=== PATIENT | male | born 1975 | race Caucasian/White ===

== ENCOUNTER 2017-07-11 18:10 | Emergency (ER) | payer BC ==
[2017-07-11] MEDS ORDERED: Clindamycin CAP* 150 MG PO ONE ×2 (18:45→19:01)
[2017-07-11 18:50] VITALS: BP 139/81
--- NOTE | 2017-07-11 18:54 | UC ---
UC Dental HPI - HPI Summary HPI Summary: patient has increased upper jaw pain and right maxillary sinus pain, started 2 days ago. - History of Current Complaint Chief Complaint: UCDentalProblem Stated Complaint: TOOTH PAIN Time Seen by Provider: 07/11/17 18:41 Hx Obtained From: Patient Onset/Duration: Sudden Onset, Lasting Days Severity: Moderate Related History: Previous Dental Care on Same Tooth, Swelling - Allergies/Home Medications Allergies/Adverse Reactions: Allergies Allergy/AdvReac Type Severity Reaction Status Date / Time Penicillins Allergy Mild Rash Verified 07/11/17 18:36 PMH/Surg Hx/FS Hx/Imm Hx Previously Healthy: Yes - Surgical History Surgical History: Yes Surgery Procedure, Year, and Place: FACIAL SURGERY - Family History Known Family History: Positive: Hypertension - Social History Alcohol Use: Weekly Alcohol Amount: once a week Substance Use Type: Marijuana Substance Use Comment - Amount & Last Used: once daily Smoking Status (MU): Heavy Every Day Tobacco Smoker Type: Cigarettes Amount Used/How Often: 1 ppd Review of Systems Constitutional: Negative Skin: Negative Eyes: Negative ENT: Dental Pain Respiratory: Negative Cardiovascular: Negative Gastrointestinal: Negative Genitourinary: Negative Motor: Negative Neurovascular: Negative Musculoskeletal: Negative Neurological: Headache Psychological: Negative Is Patient Immunocompromised?: No All Other Systems Reviewed And Are Negative: Yes Physical Exam Triage Information Reviewed: Yes Appearance: Well-Appearing, Well-Nourished, Pain Distress Vital Signs: Initial Vital Signs Temp 97.1 F 07/11/17 18:32 Pulse 74 07/11/17 18:32 Resp 15 07/11/17 18:32 BP 139/81 07/11/17 18:32 Pulse Ox 100 07/11/17 18:32 Vital Signs Reviewed: Yes Eye Exam: Normal ENT: Positive: Hearing grossly normal, Pharynx normal Dental: Positive: Percussion Tenderness @ - over right max illary sinus, Gross Decay/Caries @, Cellulitis @ Neck exam: Normal Respiratory Exam: Normal Cardiovascular Exam: Normal Abdominal Exam: Normal Bowel Sounds: Positive: Present Musculoskeletal Exam: Normal Neurological Exam: Normal Psychological Exam: Normal Skin Exam: Normal Dental Complaint Course/Dx - Course Course Of Treatment: hx obtained, exam performed ,meds reviewed, treated for dental infection - Differential Dx/Diagnosis Differential Diagnosis/Dx: Dental Abscess, Dental Caries Provider Diagnoses: dental abcess of right upper jaw. maxillary sinus pain Discharge - Discharge Plan Condition: Stable Disposition: HOME Prescriptions: Clindamycin Cap(NF) [Clindamycin Cap 300 mg Cap(NF)] 300 mg PO TID #20 cap Patient Education Materials: Dental Abscess (ED) Referrals: Niles Goetz MD [Primary Care Provider] - Additional Instructions: 1. take the medication as prescribed 2. Gargle withwarm salt water, 3. Warm compresses to the area 4. follow up with the dentist for further evaluation.
== END 2017-07-11 19:09 | disposition home or self-care (01) ==
LOC: UCCORT 18:10
DX: K04.7 Periapical abscess without sinus (principal); J34.89 Other specified disorders of nose and nasal sinuses; Z88.0 Allergy status to penicillin; F12.90 Cannabis use, unspecified, uncomplicated; F17.210 Nicotine dependence, cigarettes, uncomplicated
CPT/HCPCS: 99212; A9270-GY; G0463

== ENCOUNTER 2017-12-07 17:19 | Emergency (ER) | payer BC ==
[2017-12-07 18:35] VITALS: BP 139/83
--- NOTE | 2017-12-07 18:52 | UC ---
FLU HPI - HPI Summary HPI Summary: Cough, congestion and fever since last night. States his was diagnosed with flu 3 days ago. States his 14 yo daughter had flu earlier this year. Pt is a engineer design and construction, working inside still. Hx hypothryroid, on levothryroxine. - History of Current Complaint Chief Complaint: UCGeneralIllness Stated Complaint: FLU SYMPTOMS Time Seen by Provider: 12/07/17 18:39 Hx Obtained From: Patient Onset/Duration: Sudden Onset, Lasting Days - since last pm, Still Present Severity Currently: Moderate Severity Initially: Moderate Pain Intensity: 0 Pain Scale Used: 0-10 Numeric Associated Signs & Symptoms: Positive: Fever, Myalgia, Cough, Sore Throat, Nasal Congestion, Headache. Negative: Vomiting Related Hx: Possible Flu/Infectious Exposure - , Smoking - Allergy/Home Medications Allergies/Adverse Reactions: Allergies Allergy/AdvReac Type Severity Reaction Status Date / Time Penicillins Allergy Intermediate Rash Verified 12/07/17 18:35 PMH/Surg Hx/FS Hx/Imm Hx Previously Healthy: No Endocrine History: Hypothyroidism - on levothryroxine - Surgical History Surgical History: Yes Surgery Procedure, Year, and Place: FACIAL SURGERY - Family History Known Family History: Positive: Hypertension, Other - mother with brain tumor, with it - Social History Occupation: Employed Full-time Lives: With Family Alcohol Use: Weekly Alcohol Amount: once a week Substance Use Type: Marijuana Substance Use Comment - Amount & Last Used: once daily Smoking Status (MU): Heavy Every Day Tobacco Smoker Type: Cigarettes Amount Used/How Often: 1 ppd Review of Systems Constitutional: Fever ENT: Sore Throat, Nasal Discharge, Sinus Congestion, Sinus Pain/Tenderness Respiratory: Cough Cardiovascular: Negative Gastrointestinal: Negative Motor: Negative Neurovascular: Negative Musculoskeletal: Myalgia Neurological: Headache Psychological: Negative Is Patient Immunocompromised?: No All Other Systems Reviewed And Are Negative: Yes Physical Exam Triage Information Reviewed: Yes Appearance: No Pain Distress, Well-Nourished, Ill-Appearing - mod Vital Signs: Initial Vital Signs Temp 98.1 F 12/07/17 18:32 Pulse 74 12/07/17 18:32 Resp 18 12/07/17 18:32 BP 139/83 12/07/17 18:32 Pulse Ox 100 12/07/17 18:32 Vital Signs Reviewed: Yes Eyes: Positive: Conjunctiva Clear ENT: Positive: Hearing grossly normal, Pharyngeal erythema, Nasal congestion, TMs normal, Uvula midline. Negative: Tonsillar swelling, Tonsillar exudate, Muffled voice, Hoarse voice Neck: Positive: Supple, Nontender, No Lymphadenopathy Respiratory: Positive: Chest non-tender, Lungs clear, Normal breath sounds, No respiratory distress, No accessory muscle use Cardiovascular: Positive: RRR, No Murmur, Pulses Normal, Brisk Capillary Refill Abdomen Description: Positive: Nontender, Soft. Negative: Distended, Guarding Musculoskeletal: Positive: Strength Intact, ROM Intact Neurological Exam: Normal Neurological: Positive: Alert, Muscle Tone Normal Psychological Exam: Normal Skin Exam: Normal Flu Course/Dx - Course Course Of Treatment: influenza flu B positive. elevated BP noted - Differential Dx/Diagnosis Differential Diagnosis/HQI/PQRI: Broncholiolitis, Influenza, Pneumonia, Upper Respiratory Infection Provider Diagnoses: Influenza B. Elevated BP without dx of HTN. tobacco abuse disorder Discharge - Sign-Out/Discharge Documenting (check all that apply): Discharge/Admit/Transfer - discharge home - Discharge Plan Condition: Stable Disposition: HOME Prescriptions: Oseltamivir CAP* [Tamiflu CAP*] 75 mg PO BID #10 cap Patient Education Materials: Influenza (ED) Forms: *Work Release Referrals: Niles Goetz MD [Primary Care Provider] - 2 Days Additional Instructions: You are positive for influenza B. You may take over the counter cough syrup with the tamiflu medication. You are contagious for a full week. Return to urgent care if you have new or worsening symptoms. - Billing Disposition and Condition Condition: STABLE Disposition: HOME
== END 2017-12-07 19:11 | disposition home or self-care (01) ==
LOC: UCCORT 17:19
DX: J10.1 Influenza due to other identified influenza virus with other respiratory manifestations (principal); R03.0 Elevated blood-pressure reading, without diagnosis of hypertension; F17.210 Nicotine dependence, cigarettes, uncomplicated; Z88.0 Allergy status to penicillin; E03.9 Hypothyroidism, unspecified; Z20.828 Contact with and (suspected) exposure to other viral communicable diseases
CPT/HCPCS: 87502; 99212; G0463

== ENCOUNTER 2018-05-05 07:00 | Emergency (ER) | payer BC ==
[2018-05-05 07:15] VITALS: BP 128/77
--- NOTE | 2018-05-05 07:20 | UC ---
Respiratory Complaint HPI - HPI Summary HPI Summary: 42 year old male with cough complaint and some body aches for 4 days. No fever. No SOB. No CP. No sick contacts. No n/v/d. Has had fatigue - History of Current Complaint Chief Complaint: UCRespiratory Stated Complaint: COLD SXS Time Seen by Provider: 05/05/18 07:18 Hx Obtained From: Patient Onset/Duration: Gradual Onset Timing: Constant Severity Initially: Mild Severity Currently: Moderate Pain Intensity: 7 Character: Cough: Nonproductive Associated Signs And Symptoms: Positive: URI, Nasal Congestion, Hoarseness, Sinus Discomfort - Allergies/Home Medications Allergies/Adverse Reactions: Allergies Allergy/AdvReac Type Severity Reaction Status Date / Time Penicillins Allergy Intermediate Rash Verified 05/05/18 07:16 PMH/Surg Hx/FS Hx/Imm Hx Previously Healthy: Yes Endocrine History: Hypothyroidism - Surgical History Surgical History: Yes Surgery Procedure, Year, and Place: FACIAL SURGERY - Family History Known Family History: Positive: Hypertension, Other - mother with brain tumor, with it - Social History Occupation: Employed Full-time Alcohol Use: Occasionally Alcohol Amount: once a week Substance Use Type: Marijuana Substance Use Comment - Amount & Last Used: once daily Smoking Status (MU): Heavy Every Day Tobacco Smoker Type: Cigarettes Amount Used/How Often: 1 ppd Cessation Counseling: Patient Advised to Stop Review of Systems Constitutional: Chills, Fatigue ENT: Sore Throat, Nasal Discharge Respiratory: Cough Musculoskeletal: Myalgia Is Patient Immunocompromised?: No All Other Systems Reviewed And Are Negative: Yes Physical Exam Triage Information Reviewed: Yes Appearance: Well-Appearing, No Pain Distress, Well-Nourished Vital Signs: Initial Vital Signs Temp 98.5 F 05/05/18 07:12 Pulse 95 05/05/18 07:12 Resp 15 05/05/18 07:12 BP 128/77 05/05/18 07:12 Pulse Ox 98 05/05/18 07:12 Vital Signs Reviewed: Yes Eye Exam: Normal ENT Exam: Normal ENT: Positive: Hearing grossly normal, Nasal congestion, Nasal drainage. Negative: TM bulging, TM dull, TM red, Tonsillar swelling Dental Exam: Normal Neck exam: Normal Neck: Positive: 1 Respiratory Exam: Normal Respiratory: Positive: Chest non-tender, Lungs clear, Normal breath sounds, No respiratory distress Cardiovascular Exam: Normal Musculoskeletal Exam: Normal Neurological Exam: Normal Psychological Exam: Normal Skin Exam: Normal UC Diagnostic Evaluation - Laboratory O2 Sat by Pulse Oximetry: 98 Respiratory Course/Dx - Course Course Of Treatment: Viral at this time. Start decongestant and flonase and rest with fluids and if Sx worsen then RTO . Advise to quit smoking. Declined work note. - Differential Dx/Diagnosis Differential Diagnosis/HQI/PQRI: Bronchitis, Influenza, Laryngitis, Lower Resp Infection, Sinusitis Provider Diagnoses: URI Discharge - Sign-Out/Discharge Documenting (check all that apply): Patient Departure All imaging exams completed and their final reports reviewed: No Studies - Discharge Plan Condition: Good Disposition: HOME Prescriptions: Benzonatate CAP* [Tessalon 100 MG CAP*] 100 mg PO TID #20 cap Patient Education Materials: Upper Respiratory Infection (ED) Referrals: Niles Goetz MD [Primary Care Provider] - 4 Days - Billing Disposition and Condition Condition: GOOD Disposition: Home
== END 2018-05-05 07:32 | disposition home or self-care (01) ==
LOC: UCCORT 07:00
DX: J06.9 Acute upper respiratory infection, unspecified (principal); Z88.0 Allergy status to penicillin; F17.210 Nicotine dependence, cigarettes, uncomplicated
CPT/HCPCS: 99212; G0463

== ENCOUNTER 2018-08-12 15:44 | Emergency (ER) | payer BC ==
[2018-08-12 16:09] VITALS: BP 144/85
[2018-08-12] MEDS ORDERED: Tetracaine 0.5% OPTH.SOL 4 ML* 1 DROP BTL RIGHT EYE ONE (16:11)
[2018-08-12] MEDS ORDERED: Fluorescein Sodium TOPICAL* 1 MG TEST STRIP OPHTHALMIC ONE (16:12)
--- NOTE | 2018-08-12 16:47 | UC ---
Eye Complaint HPI - HPI Summary HPI Summary: 42-year-old male comes to clinic today with a chief complaint of left eye irritation. He was at work and he was working with a ceiling overhead and he believes some pieces of the ceiling which is made of concrete got into his left eye. His been irritated ever since. No change in vision. Does not wear glasses or contact lenses. Blinking makes the pain worse keeping eyes closed decreases the pain some. - History of Current Complaint Chief Complaint: UCEye Stated Complaint: FOREIGN BODY IN EYE Time Seen by Provider: 08/12/18 16:11 Pain Intensity: 6 - Allergies/Home Medications Allergies/Adverse Reactions: Allergies Allergy/AdvReac Type Severity Reaction Status Date / Time Penicillins Allergy Intermediate Rash Verified 08/12/18 16:09 PMH/Surg Hx/FS Hx/Imm Hx Previously Healthy: Yes - Surgical History Surgical History: Yes Surgery Procedure, Year, and Place: FACIAL SURGERY - Family History Known Family History: Positive: Hypertension, Other - mother with brain tumor, with it - Social History Alcohol Use: Occasionally Alcohol Amount: once a week Substance Use Type: Marijuana Substance Use Comment - Amount & Last Used: once daily Smoking Status (MU): Heavy Every Day Tobacco Smoker Type: Cigarettes Amount Used/How Often: 1 ppd Review of Systems All Other Systems Reviewed And Are Negative: Yes Constitutional: Positive: Negative Skin: Positive: Negative Eyes: Positive: Other - SEE HPI ENT: Positive: Negative Respiratory: Positive: Negative Cardiovascular: Positive: Negative Gastrointestinal: Positive: Negative Motor: Positive: Negative Neurovascular: Positive: Negative Musculoskeletal: Positive: Negative Neurological: Positive: Negative Psychological: Positive: Negative Is Patient Immunocompromised?: No Physical Exam Triage Information Reviewed: Yes Appearance: Well-Appearing, No Pain Distress, Well-Nourished Vital Signs: Initial Vital Signs Temp 97.7 F 08/12/18 16:06 Pulse 69 08/12/18 16:06 Resp 18 08/12/18 16:06 BP 144/85 08/12/18 16:06 Pulse Ox 98 08/12/18 16:06 Vital Signs Reviewed: Yes Eyes: Positive: Other: - B/L PERRLA/EOMI. right I has no scleral injection is normal to exam. Left eye does have scleral injection. Left eye was examined with fluorescein stain and using tetracaine. At the 3 o'clock position of the iris there was a 1 mm foreign body seen which are reviewed removed with a Q- tip. There is a remaining corneal abrasion after the removal. Otherwise normal eye exam. Neck exam: Normal Neck: Positive: Supple Respiratory: Positive: No respiratory distress Musculoskeletal Exam: Normal Musculoskeletal: Positive: Strength Intact, ROM Intact Neurological Exam: Normal Neurological: Positive: Alert, Muscle Tone Normal Psychological Exam: Normal Psychological: Positive: Age Appropriate Behavior Skin Exam: Normal Eye Complaint Course/Dx - Course Course Of Treatment: It appears I was able to remove the foreign body and that an underlying corneal abrasion still persists. The plan is tobramycin eyedrops and if not completely improved follow-up with ophthalmology. - Differential Dx/Diagnosis Provider Diagnosis: Foreign body of left eye, Corneal abrasion, left Discharge - Sign-Out/Discharge Documenting (check all that apply): Patient Departure All imaging exams completed and their final reports reviewed: No Studies - Discharge Plan Condition: Stable Disposition: HOME Prescriptions: Tobramycin 0.3% OPHTH.DASIA* 1 drop LEFT EYE Q4H #1 btl Patient Education Materials: Corneal Abrasion (ED), Eye Foreign Body (ED) Referrals: Niles Goetz MD [Primary Care Provider] - Jose Flores MD [Medical Doctor] - Additional Instructions: FOLLOW UP WITH OPHTHALMOLOGY IF NOT COMPLETELY IMPROVED. GET RECHECKED FOR ANY WORSENING OF YOUR CONDITION OR QUESTIONS OR CONCERNS. - Billing Disposition and Condition Condition: STABLE Disposition: Home
== END 2018-08-12 16:55 | disposition home or self-care (01) ==
LOC: UCEAST 15:44
DX: T15.02XA Foreign body in cornea, left eye, initial encounter (principal); S05.02XA Injury of conjunctiva and corneal abrasion without foreign body, left eye, initial encounter; F17.210 Nicotine dependence, cigarettes, uncomplicated; Z88.0 Allergy status to penicillin; X58.XXXA Exposure to other specified factors, initial encounter; Y92.9 Unspecified place or not applicable; Y99.0 Civilian activity done for income or pay
CPT/HCPCS: 99212; A9270-GY; G0463

== ENCOUNTER 2018-11-04 16:07 | Emergency (ER) | payer BC ==
[2018-11-04 16:15] VITALS: BP 129/88
--- NOTE | 2018-11-04 16:38 | UC ---
FLU HPI - HPI Summary HPI Summary: 43 y/o male presents to the urgent care c/o fever, body aches, CRESPO and a dry cough since last night. He has been taking Ibuprofen PO to alleviate symptoms. Body aches is 6/10 associated w/ mild sore throat. His was Dx w/ Influenza A 3 days ago. Pt had low grade fever over night. Pt denies SOB, wheezing, dizziness, chest pain, abdominal pain, N/V/d. - History of Current Complaint Chief Complaint: UCRespiratory Stated Complaint: FEVER Time Seen by Provider: 11/04/18 16:37 Hx Obtained From: Patient Onset/Duration: Gradual Onset, Lasting Days - 1 day, Still Present, Worse Since - this morning Severity Currently: Mild Severity Initially: Moderate Pain Intensity: 6 - body aches Pain Scale Used: 0-10 Numeric Associated Signs & Symptoms: Positive: Fever, Myalgia, Sore Throat - mild, Nasal Congestion - clear, Headache Related Hx: Possible Flu/Infectious Exposure - recently Dx w/ the flu 3 days ago - Risk Factors Influenza Risk Factors: Negative - Allergy/Home Medications Allergies/Adverse Reactions: Allergies Allergy/AdvReac Type Severity Reaction Status Date / Time Penicillins Allergy Intermediate Rash Verified 11/04/18 16:15 PMH/Surg Hx/FS Hx/Imm Hx Previously Healthy: Yes Endocrine History: Hypothyroidism - Surgical History Surgical History: Yes Surgery Procedure, Year, and Place: FACIAL SURGERY - Family History Known Family History: Positive: Hypertension, Other - mother with brain tumor, with it - Social History Occupation: Employed Full-time Lives: With Family Alcohol Use: Occasionally Alcohol Amount: once a week Substance Use Type: Marijuana Substance Use Comment - Amount & Last Used: once daily Smoking Status (MU): Heavy Every Day Tobacco Smoker Type: Cigarettes Amount Used/How Often: 1 ppd Review of Systems All Other Systems Reviewed And Are Negative: Yes Constitutional: Positive: Fever, Chills, Other - body aches Skin: Positive: Negative Eyes: Positive: Negative ENT: Positive: Sore Throat - mild, Nasal Discharge - clear, Sinus Congestion, Sinus Pain/Tenderness Respiratory: Positive: Cough - dry Cardiovascular: Positive: Negative Gastrointestinal: Positive: Negative Genitourinary: Positive: Negative Motor: Positive: Negative Neurovascular: Positive: Negative Musculoskeletal: Positive: Myalgia Neurological: Positive: Headache Psychological: Positive: Negative Is Patient Immunocompromised?: No Physical Exam - Summary Physical Exam Summary: VITAL SIGNS: Reviewed. GENERAL: Patient is a well developed and nourished male who is sitting comfortable in the examining table. Patient is not in any acute respiratory distress. HEAD AND FACE: No signs of trauma. No ecchymosis, hematomas or skull depressions. No sinus tenderness. EYES: PERRLA, EOMI x 2, No injected conjunctiva, no nystagmus. No photophobia. EARS: Hearing grossly intact. Ear canals and tympanic membranes are within normal limits. Nose: edematous and erythematous nasal mucosa w/ clear nasal discharge. MOUTH: Positive no erythema, no tonsillar enlargement. Uvula in midline. NECK: Supple, trachea is midline, Positive anterior cervical lymphadenopathy, no JVD, no carotid bruit, no c-spine tenderness, neck with full ROM. No meningeal signs, no Kernig's or brudzinskis signs. CHEST: Symmetric, no tenderness at palpation LUNGS: Clear to auscultation bilaterally. No wheezing or crackles. CVS: Regular rate and rhythm, S1 and S2 present, no murmurs or gallops appreciated. ABDOMEN: Soft, non-tender. No signs of distention. No rebound no guarding, and no masses palpated. Bowel sounds are normal. EXTREMITIES: FROM in all major joints, no edema, no cyanosis or clubbing. NEURO: Alert and oriented x 3. No acute neurological deficits. Speech is normal and follows commands. SKIN: Dry and warm Triage Information Reviewed: Yes Vital Signs: Initial Vital Signs Temp 97.4 F 11/04/18 16:11 Pulse 82 11/04/18 16:11 Resp 16 11/04/18 16:11 BP 129/88 11/04/18 16:11 Pulse Ox 99 11/04/18 16:11 Flu Course/Dx - Course Course Of Treatment: 43 y/o male presents to the urgent care c/o fever, body aches, CRESPO and a dry cough since last night. He has been taking Ibuprofen PO to alleviate symptoms. Body aches is 6/10 associated w/ mild sore throat. His was Dx w/ Influenza A 3 days ago. Pt had low grade fever over night. Pt denies SOB, wheezing, dizziness, chest pain, abdominal pain, N/V/d. Hx obtained. Pt with viral syndrome URI on examination. Pt w/ influenza exposure by who was recently Dx with influenza. Infleunza A&B ordered: negative. Pt Rx Tamiflu PO as irected below and advised to continue taking ibuprofen PO to alleviates symptoms. Advised on hand washing and wear a mask to avoid spreading. Pt advised to rest, increase fluid intake, eat well and avoid strenuous exercise. If symptoms do not improve or worsen advised to return to the urgent care or f/ u with her PCP for further evaluation and treatment. D/C instructions explained. Pt understood and agreed with plan of care. - Differential Dx/Diagnosis Differential Diagnosis/HQI/PQRI: Bronchitis, Influenza, Pneumonia, Upper Respiratory Infection Provider Diagnosis: Exposure to influenza, Viral syndrome Discharge - Sign-Out/Discharge Documenting (check all that apply): Patient Departure - d/c home All imaging exams completed and their final reports reviewed: No Studies - Discharge Plan Condition: Stable Disposition: HOME Prescriptions: Oseltamivir CAP* [Tamiflu CAP*] 75 mg PO DAILY #10 cap Patient Education Materials: Viral Syndrome (ED) Referrals: Niles Goetz MD [Primary Care Provider] - 3 Days Additional Instructions: 1- Please take the full course of the antiviral to avoid resistance since you have been exposed to influenza by your . Encourage hand washing and wear a mask to avoid spreading. 2-Please continue taking Ibuprofen PO q6-8hrs prn as instructed after meals to alleviate fever, CRESPO and sore throat. Increase fluid intake, eat well, rest and avoid strenuous exercise 3-If symptoms do not improve or worsen please return to the urgent care or f/u with your PCP in 3 days for further evaluation and treatment. - Billing Disposition and Condition Condition: STABLE Disposition: Home
[2018-11-04 16:42] LABS: Influenza A Molecular NEGATIVE (Negative); Influenza B Molecular NEGATIVE (Negative)
== END 2018-11-04 17:05 | disposition home or self-care (01) ==
LOC: UCEAST 16:07
DX: Z20.828 Contact with and (suspected) exposure to other viral communicable diseases (principal); B34.9 Viral infection, unspecified; E03.9 Hypothyroidism, unspecified; F17.210 Nicotine dependence, cigarettes, uncomplicated; Z88.0 Allergy status to penicillin
CPT/HCPCS: 99212; G0463

== ENCOUNTER 2019-02-10 09:05 | Emergency (ER) | payer BC ==
[2019-02-10 10:23] VITALS: BP 124/84
--- NOTE | 2019-02-10 10:47 | UC ---
Throat Pain/Nasal Fito HPI - HPI Summary HPI Summary: 43-year-old male presents with 2 different complaints. His first complaint is of a ten-day history of cold-like symptoms including nasal congestion, sinus pain, sore throat, and occasionally productive cough for green sputum with his symptoms progressively worsening over the last 2-3 days. Denies fever, chills, ear drainage, dysphagia, or difficulty breathing. His second complaint is of intermittent left lower quadrant pain for the past 6 months that has become a little more constant over the last 2-3 days. States initially pain seemed to be located more in the left hip and worsened with movement although over the last 2-3 days has noticed the pain more in the left lower quadrant. No personal or family history of kidney stones or diverticulosis/diverticulitis. Last bowel movement was this morning. Reports soft, brown, formed stool. Denies nausea, vomiting, diarrhea, constipation, blood in stool, melena, back or flank pain, dysuria, frequency, urgency, hematuria, testicular pain or swelling. - History of Current Complaint Chief Complaint: UCRespiratory Stated Complaint: CONGESTION,COUGH,UPSET STOMACH Time Seen by Provider: 02/10/19 10:28 Hx Obtained From: Patient Pain Intensity: 5 - Allergies/Home Medications Allergies/Adverse Reactions: Allergies Allergy/AdvReac Type Severity Reaction Status Date / Time Penicillins Allergy Intermediate Rash Verified 11/04/18 16:15 PMH/Surg Hx/FS Hx/Imm Hx Endocrine History: Hypothyroidism - Surgical History Surgical History: Yes Surgery Procedure, Year, and Place: FACIAL SURGERY - Family History Known Family History: Positive: Hypertension, Other - mother with brain tumor, with it - Social History Occupation: Employed Full-time Lives: With Family Alcohol Use: Weekly Alcohol Amount: once a week Substance Use Type: Marijuana Substance Use Comment - Amount & Last Used: daily Smoking Status (MU): Heavy Every Day Tobacco Smoker Type: Cigarettes Amount Used/How Often: 1 ppd Length of Time of Smoking/Using Tobacco: since age 20 Have You Smoked in the Last Year: Yes Review of Systems All Other Systems Reviewed And Are Negative: Yes Constitutional: Negative: Fever, Chills Skin: Negative: Rash Eyes: Negative: Drainage, Eye Redness ENT: Positive: Sore Throat, Nasal Discharge, Sinus Congestion, Sinus Pain/ Tenderness. Negative: Ear Ache Respiratory: Positive: Cough. Negative: Shortness Of Breath Cardiovascular: Negative: Palpitations, Chest Pain Gastrointestinal: Positive: Abdominal Pain. Negative: Vomiting, Diarrhea, Nausea Genitourinary: Negative: Dysuria, Hematuria, Frequency, Urgency Musculoskeletal: Positive: Negative Neurological: Positive: Negative Is Patient Immunocompromised?: No Physical Exam - Summary Physical Exam Summary: GENERAL APPEARANCE: Well developed, well nourished, alert and cooperative, and appears to be in no acute distress. EYES: Conjunctiva clear. No drainage. EARS: External auditory canals and tympanic membranes clear, hearing grossly intact. NOSE:Moderate nasal congestion. No nasal discharge. Maxillary and frontal sinus tenderness with percussion. THROAT: Pharyngeal cobblestoning. No tonsilar inflammation, swelling, exudate, or lesions. Uvula midline. NECK: Neck supple, non-tender without lymphadenopathy. CARDIAC: Normal S1 and S2. No S3, S4 or murmurs. Rhythm is regular. There is no peripheral edema, cyanosis or pallor. Extremities are warm and well perfused. Capillary refill is less than 2 seconds. Peripheral pulses intact. LUNGS: Clear to auscultation without rales, rhonchi, wheezing or diminished breath sounds. Non-productive cough. ABDOMEN: Positive bowel sounds. Soft, nondistended, nontender. No guarding or rebound. No masses or hepatosplenomegally. No CVA tenderness. MUSKULOSKELETAL: ROM intact to all extremities. No joint erythema or tenderness. Normal muscular development. Normal gait. SKIN: Skin normal color, texture and turgor with no lesions or eruptions. Triage Information Reviewed: Yes Vital Signs: Initial Vital Signs Temp 97.3 F 02/10/19 10:17 Pulse 65 02/10/19 10:17 Resp 16 02/10/19 10:17 BP 124/84 02/10/19 10:17 Pulse Ox 99 02/10/19 10:17 Vital Signs Reviewed: Yes Throat Pain/Nasal Course/Dx - Course Course Of Treatment: 43-year-old male presents with 2 different complaints. His first complaint is of a ten-day history of cold-like symptoms including nasal congestion, sinus pain, sore throat, and occasionally productive cough for green sputum with his symptoms progressively worsening over the last 2-3 days. Denies fever, chills, ear drainage, dysphagia, or difficulty breathing. His second complaint is of intermittent left lower quadrant pain for the past 6 months that has become a little more constant over the last 2-3 days. States initially pain seemed to be located more in the left hip and worsened with movement although over the last 2-3 days has noticed the pain more in the left lower quadrant. No personal or family history of kidney stones or diverticulosis/diverticulitis. Last bowel movement was this morning. Reports soft, brown, formed stool. Denies nausea, vomiting, diarrhea, constipation, blood in stool, melena, back or flank pain, dysuria, frequency, urgency, hematuria, testicular pain or swelling. Afebrile. Vital signs stable. Patient had some moderate nasal congestion, maxillary and frontal sinus tenderness, pharyngeal cobblestoning without tonsillar swelling, exudate, or cervical lymphadenopathy, occasional nonproductive cough with clear bilateral breath sounds, and a soft, nondistended , nontender abdomen without CVA tenderness, and otherwise unremarkable exam. Discussed with patient that based on the duration and worsening of his upper respiratory symptoms we will treat him for an acute bacterial sinusitis including doxycycline 100 mg twice a day 10 days as well as symptomatic treatment. In regards to his abdominal pain we discussed that his exam was not concerning for an acute abdomen and considering the duration of his symptoms recommending that he follow up with his primary care provider for further evaluation. Anticipatory guidance and warning symptoms were reviewed with the patient. Verbalizes understanding and agrees with plan of care. - Differential Dx/Diagnosis Differential Diagnosis/HQI/PQRI: Pharyngitis, Sinusitis, URI, Other - Constipation, diverticulosis/diverticulitis Provider Diagnosis: Acute sinusitis Discharge - Sign-Out/Discharge Documenting (check all that apply): Patient Departure All imaging exams completed and their final reports reviewed: No Studies - Discharge Plan Condition: Stable Disposition: HOME Prescriptions: Doxycycline Hyclate 100 mg PO BID #20 tablet Fluticasone NASAL SPRAY 50MCG* [Flonase NASAL SPRAY 50MCG*] 2 spray BOTH NARES DAILY #1 btl Patient Education Materials: Sinusitis (ED), Abdominal Pain (ED) Referrals: Niles Goetz MD [Primary Care Provider] - 7 Days Additional Instructions: Your history and exam are consistent with a sinus infection. Considering the duration and worsening of your symptoms we will start you on an antibiotic. Take doxycycline 100 mg twice a day for 10 days. Be sure to finish the entire course even if feeling better. This medication will make you more sensitive to the sun so you will need to take precautions including long sleeves, hat, and sunscreen. Drink plenty of fluids. Use a saline rinse kit such as Neti Pot or NeilMed at least twice a day to help thin secretions and promote drainage of the sinuses. Use fluticasone (Flonase) nasal spray 2 sprays each nostril once daily. Use an over the counter decongestant such as Sudafed according to directions to help with congestion. Take over the counter acetaminophen (Tylenol) or ibuprofen (Advil, Motrin) according to directions as needed for pain or fever. Use salt water gargles several times a day if you have a sore throat. You may also use Chloraseptic spray or Cepacol lonzenges according to directions which contain a numbing medication and can provide some temporary relief from your sore throat. Your abdominal exam today was unremarkable. I do not feel that your pain is related to an urgent condition however I strongly recommend that you follow up with your primary care provider for further evaluation. Follow up with your primary care provider in 7 days for reevaluation of your symptoms. Seek immediate medical attention in the emergency room if you have fever greater than 100.5 F despite taking acetaminophen or ibuprofen, are unable to swallow, have chest pain, difficulty breathing, severe abdominal pain, persistent or projectile vomiting, blood in bowel movement, dark black stools, or have any worsening of symptoms. - Billing Disposition and Condition Condition: STABLE Disposition: Home
== END 2019-02-10 11:16 | disposition home or self-care (01) ==
LOC: UCCORT 09:05
DX: J01.90 Acute sinusitis, unspecified (principal); Z88.0 Allergy status to penicillin; F17.210 Nicotine dependence, cigarettes, uncomplicated
CPT/HCPCS: 99212; G0463

== ENCOUNTER 2019-04-11 15:26 | Emergency (ER) | payer BC ==
[2019-04-11 15:36] VITALS: BP 134/85
--- NOTE | 2019-04-11 16:24 | UC ---
Ear Complaint HPI - HPI Summary HPI Summary: 43-year-old male presents with complaints of left ear fullness for the past couple of days. States it feels like water in the ear. Notes some popping. Reports hearing is a little muffled. Denies fever, chills, ear pain, discharge , or URI symptoms. - History of Current Complaint Chief Complaint: UCEar Stated Complaint: EAR COMPLAINT Time Seen by Provider: 04/11/19 15:32 Hx Obtained From: Patient Pain Intensity: 0 - Allergies/Home Medications Allergies/Adverse Reactions: Allergies Allergy/AdvReac Type Severity Reaction Status Date / Time Penicillins Allergy Intermediate Rash Verified 04/11/19 15:36 Home Medications: Home Medications Cyanocobalamin (Vitamin B-12) [Vitamin B-12] 1,000 mg PO DAILY 04/11/19 [ History Confirmed 04/11/19] PMH/Surg Hx/FS Hx/Imm Hx Previously Healthy: Yes Endocrine History: Hypothyroidism - Surgical History Surgical History: Yes Surgery Procedure, Year, and Place: FACIAL SURGERY - Family History Known Family History: Positive: Hypertension, Other - mother with brain tumor, with it - Social History Occupation: Employed Full-time Lives: With Family Alcohol Use: Weekly Alcohol Amount: once a week Substance Use Type: Marijuana Substance Use Comment - Amount & Last Used: daily Smoking Status (MU): Heavy Every Day Tobacco Smoker Type: Cigarettes Amount Used/How Often: 1 ppd Length of Time of Smoking/Using Tobacco: since age 20 Have You Smoked in the Last Year: Yes Review of Systems All Other Systems Reviewed And Are Negative: Yes Constitutional: Negative: Fever, Chills ENT: Positive: Other - See HPI Respiratory: Positive: Negative Cardiovascular: Positive: Negative Gastrointestinal: Positive: Negative Genitourinary: Positive: Negative Musculoskeletal: Positive: Negative Neurological: Positive: Negative Is Patient Immunocompromised?: No Physical Exam - Summary Physical Exam Summary: GENERAL APPEARANCE: Well developed, well nourished, alert and cooperative, and appears to be in no acute distress. EYES: Conjunctiva clear. No drainage. EARS: External auditory canals and tympanic membranes clear, hearing grossly intact. NOSE: No nasal discharge. THROAT: Pharynx normal. No tonsilar inflammation, swelling, exudate, or lesions. Uvula midline. NECK: Neck supple, non-tender without lymphadenopathy. CARDIAC: Normal S1 and S2. No S3, S4 or murmurs. Rhythm is regular. There is no peripheral edema, cyanosis or pallor. Extremities are warm and well perfused. Capillary refill is less than 2 seconds. Peripheral pulses intact. LUNGS: Clear to auscultation without rales, rhonchi, wheezing or diminished breath sounds. ABDOMEN: Positive bowel sounds. Soft, nondistended, nontender. No guarding or rebound. No masses or hepatosplenomegally. MUSKULOSKELETAL: ROM intact to all extremities. No joint erythema or tenderness. Normal muscular development. Normal gait. SKIN: Skin normal color, texture and turgor with no lesions or eruptions. Triage Information Reviewed: Yes Vital Signs: Initial Vital Signs Temp 97.6 F 04/11/19 15:32 Pulse 73 04/11/19 15:32 Resp 18 04/11/19 15:32 BP 134/85 04/11/19 15:32 Pulse Ox 98 04/11/19 15:32 Vital Signs Reviewed: Yes Ear Complaint Course/Dx - Course Course Of Treatment: 43-year-old male presents with complaints of left ear fullness for the past couple of days. States it feels like water in the ear. Notes some popping. Reports hearing is a little muffled. Denies fever, chills, ear pain, discharge , or URI symptoms. Afebrile. Mildly hypertensive otherwise vital signs stable. Patient's exam was overall unremarkable. Suspect that his symptoms may be a left eustachian tube dysfunction. Recommending that he started on fluticasone nasal spray 2 sprays each nostril once daily. He is to follow-up with his primary care provider or ENT in 1 week if symptoms are not improving. Anticipatory guidance and warning symptoms were reviewed with the patient. Verbalizes understanding and agrees with plan of care. - Differential Dx/Diagnosis Differential Diagnosis/HQI/PQRI: Cerumen Impaction, Foreign Body, Otitis Externa , Otitis Media, URI Provider Diagnosis: Dysfunction of left eustachian tube Discharge ED - Sign-Out/Discharge Documenting (check all that apply): Patient Departure All imaging exams completed and their final reports reviewed: No Studies - Discharge Plan Condition: Stable Disposition: HOME Patient Education Materials: Serous Otitis Media (ED) Referrals: Niles Goetz MD [Primary Care Provider] - Pierce Shelley MD [Medical Doctor] - 7 Days Additional Instructions: Your exam in the clinic today showed no evidence of an ear infection. I suspect that your symptoms may be from a condition called eustachian tube dysfunction. Start using fluticasone (Flonase) nasal spray 2 sprays each nostril once daily. Follow up with your primary care provider or the ear, nose, and throat specialist in 7 days if symptoms are not improving. Seek immediate medical attention if you develop fever greater than 100.5 F, severe ear pain, blood or drainage from the ear, hearing loss, or any worsening of symptoms. - Billing Disposition and Condition Condition: STABLE Disposition: Home - Attestation Statements Provider Attestation: This patient was not seen by me. I was available for consult. JEREMIAH
== END 2019-04-11 16:32 | disposition home or self-care (01) ==
LOC: UCEAST 15:26
DX: H69.82 Other specified disorders of Eustachian tube, left ear (principal); F17.210 Nicotine dependence, cigarettes, uncomplicated
CPT/HCPCS: 99211; G0463